=== PATIENT | female | born 1975 ===

== ENCOUNTER 2018-12-29 12:39 | Emergency (ER) | payer BC ==
[2018-12-29 12:54] VITALS: BMI 28.6
--- NOTE | 2018-12-29 13:09 | ED PDOC ---
Arrival/HPI - General Historian: Patient - History of Present Illness Narrative History of Present Illness (Text): 12/29/18 13:01 43 y/o female, no significant pmh, nkda, c/o headache and nausea/vomiting started this morning 5am. Pt. stated that she has chronic headache/nausea/v omiting on and off x 5 months. Pt. stated that this is chronic, never seen neurologist, seen by her own pmd, started again this morning with headache at 5am, nausea/vomiting, epigastric chest pain pain but resolved, no numbness or tingling, no change in vision, not the worst headache or her life, no blurry vision, no other medical or psychological complaints. Past Medical History - Provider Review Nursing Documentation Reviewed: Yes Family/Social History - Physician Review Nursing Documentation Reviewed: Yes Family/Social History: Unknown Family HX Allergies/Home Meds Allergies/Adverse Reactions: Allergies No Known Allergies Allergy (Verified 12/29/18 13:09) Review of Systems - Review of Systems Constitutional: absent: Fatigue, Fevers Eyes: absent: Vision Changes ENT: absent: Hearing Changes Respiratory: absent: SOB, Cough Cardiovascular: absent: Chest Pain Gastrointestinal: Nausea, Vomiting. absent: Abdominal Pain, Diarrhea Skin: absent: Rash, Pruritis Neurological: Headache. absent: Dizziness, Focal Weakness, Gait Changes, Speech Changes, Facial Droop, Disequilibrium, Seizure Psychiatric: absent: Anxiety, Depression, Suicidal Ideation Physical Exam Vital Signs Reviewed: Yes Vital Signs Temp Pulse Resp BP Pulse Ox 12/29/18 12:54 97.9 F 77 19 109/62 100 Temperature: Afebrile Blood Pressure: Normal Pulse: Regular Respiratory Rate: Normal Appearance: Positive for: Well-Appearing, Non-Toxic, Comfortable Pain Distress: Moderate Mental Status: Positive for: Alert and Oriented X 3 - Systems Exam Head: Present: Atraumatic, Normocephalic, Other (no temporal artery tenderness, no jaw claudication. ). No: Tenderness, Contusion, Swelling, Ecchymosis, Abrasion, Laceration Pupils: Present: PERRL Extroacular Muscles: Present: EOMI Conjunctiva: Present: Normal Ears: Present: Normal, NORMAL TM, Normal Canal. No: Erythema Mouth: Present: Moist Mucous Membranes Pharnyx: No: ERYTHEMA, EXUDATE, TONSILS ENLARGED Nose (External): Present: Atraumatic. No: Abrasion, Contusion, Laceration Nose (Internal): Present: Normal Inspection, No Active Bleeding. No: Edematous, Rhinorrhea, Septal Deviation, Septal Hematoma, Epistaxis Neck: Present: Normal Range of Motion, Trachea Midline. No: Meningeal Signs, MIDLINE TENDERNESS, Paraspinal Tenderness, Lymphadenopathy Respiratory/Chest: Present: Clear to Auscultation, Good Air Exchange. No: Respiratory Distress, Accessory Muscle Use, Wheezes, Decreased Breath Sounds, Rales, Retracting, Rhonchi, Tachypneic, Tender to Palpation Cardiovascular: Present: Regular Rate and Rhythm, Normal S1, S2. No: Murmurs Abdomen: No: Tenderness, Distention, Peritoneal Signs, Rebound, Guarding Back: Present: Normal Inspection. No: CVA Tenderness, Midline Tenderness, Paraspinal Tenderness, Pain with Leg Raise, Decubitus Ulcer Upper Extremity: Present: Normal Inspection. No: Cyanosis, Edema Lower Extremity: Present: Normal Inspection. No: Edema Neurological: Present: GCS=15, CN II-XII Intact, Speech Normal, Motor Func Grossly Intact, Normal Cerebellar Funct, Gait Normal, Memory Normal Skin: Present: Warm, Dry, Normal Color. No: Rashes Psychiatric: Present: Alert, Oriented x 3, Normal Insight, Normal Concentration Medical Decision Making ED Course and Treatment: 12/29/18 13:18 -labs -ekg -ct head -chest xray -IVF/reglan/benadryl/pepcid -Observe and reassess 12/29/18 14:45 -EKG: SR @ 72 BPM, no ST elevation or depression, no T wave inversion -CT head No acute intracranial abnormality. -Chest xray No active pulmonary disease. -Labs are non significant -Trop is negative -HEART score is low. -Headache and pain resolved, feeling much better, will discharge home. -Discharge home with fioriocet and zofran, stay hydrated, bed rest, follow up with your own pmd and neurologist/lead software development engineer within2 days, return to the ER for any new or worsening signs or symptoms. - RAD Interpretation Radiology Orders: CT head: Date of service: 12/29/2018 PROCEDURE: CT HEAD WITHOUT CONTRAST. HISTORY: headache, r/o bleed COMPARISON: None available. TECHNIQUE: Axial computed tomography images were obtained through the head/brain without i ntravenous contrast. Radiation dose: Total exam DLP = 907.75 mGy-cm. This CT exam was performed using one or more of the following dose reduction techniques: Automated exposure control, adjustment of the mA and/or kV according to patient size, and/or use of iterative reconstruction technique. FINDINGS: HEMORRHAGE: No intracranial hemorrhage. BRAIN: Cho-white matter differentiation is preserved. There is no mass, mass effect or abnormal extra-axial fluid collection. There is no territorial infarction. The midline sagittal structures are normal. VENTRICLES: The ventricles are normal in size, shape and configuration. CALVARIUM: There is no calvarial fracture or extracranial soft tissue swelling. PARANASAL SINUSES: There are retention cysts/polyps in the left maxillary sinus. The remaining included paranasal sinuses are clear. MASTOID AIR CELLS: Predominantly clear. OTHER FINDINGS: None. IMPRESSION: No acute intracranial abnormality. Chest xray: Date of service: 12/29/2018 HISTORY: medical clearance COMPARISON: No prior. FINDINGS: LUNGS: The lungs are well inflated and clear. PLEURA: No pleural effusions or pneumothorax. CARDIOVASCULAR: The heart is normal in size. No aortic atherosclerotic calcifications present. OSSEOUS STRUCTURES: Within normal limits for the patient's age. VISUALIZED UPPER ABDOMEN: Normal. OTHER FINDINGS: None. IMPRESSION: No active pulmonary disease. Program Director Scouting: Radiologist - PA / GOOD HUMOR VENDOR / Resident Statement MD/DO has reviewed & agrees with the documentation as recorded. Disposition/Present on Arrival - Present on Arrival Any Indicators Present on Arrival: No History of DVT/PE: No History of Uncontrolled Diabetes: No Urinary Catheter: No History of Decub. Ulcer: No - Disposition Have Diagnosis and Disposition been Completed?: Yes Diagnosis: Headache Disposition: HOME/ ROUTINE Disposition Time: 14:50 Patient Plan: Discharge Condition: GOOD Additional Instructions: -Discharge home with fioriocet and zofran, stay hydrated, bed rest, follow up with your own pmd and neurologist/lead software development engineer within2 days, return to the ER for any new or worsening signs or symptoms. Prescriptions: Acetaminophen/Butalbital/Caf [Fioricet] 1 tab PO QID PRN #25 tab PRN Reason: other Ondansetron [Zofran] 4 mg PO Q8H PRN #10 tab PRN Reason: Nausea/Vomiting Referrals: PCP,NO [Primary Care Provider] - Follow up with primary Erich Bowden MD [Staff Provider] - Follow up with primary [facility] [place] [Outside] - Follow up with primary Crystal Euceda MD [Staff Provider] - Follow up with primary Forms: WORK NOTE
[2018-12-29] MEDS ORDERED: Sodium Chloride 0.9% 1,000 ML IV STA (13:11)
[2018-12-29] MEDS ORDERED: DiphenhydrAMINE 50 mg/ml Inj IVP STA (13:11)
[2018-12-29 13:47] LABS: BASO # 0.02 K/mm3 (0.0-2.0); BASO % 0.2 % (0.0-3.0); EOS % 0.3 % (1.5-5.0); HEMOGLOBIN 12.5 g/dL (12.0-16.0); LYMPH # 1.4 (1.2-3.4); LYMPH % 13.1 % (22.0-35.0); MEAN CELL VOLUME 93.5 fl (80.0-105.0); MEAN CORPUSCULAR HGB CONC 33.2 g/dl (31.0-37.0); MONO # 0.4 (0.1-0.6); MONO % 3.6 % (1.0-6.0); RBC 4.03 10^6/uL (3.5-6.1); RED CELL DISTRIBUTION WIDTH 13.2 % (11.5-14.5); WHITE BLOOD COUNT 10.9 10^3/uL (4.5-11.0)
[2018-12-29 13:53] LABS: ALBUMIN 4.1 g/dL (3.0-4.8); ALT/SGPT 25 U/L (7-56); AST/SGOT 33 U/L (14-36); BLOOD UREA NITROGEN 14 mg/dL (7-21); CALCIUM 8.7 mg/dL (8.4-10.5); GFR NON-AFRICAN AMERICAN > 60; LIPASE 59 U/L (23-300)
[2018-12-29 14:04] LABS: TROPONIN I < 0.01 ng/mL
--- NOTE | 2018-12-29 14:06 | CT ---
Date of service: 12/29/2018 PROCEDURE: CT HEAD WITHOUT CONTRAST. HISTORY: headache, r/o bleed COMPARISON: None available. TECHNIQUE: Axial computed tomography images were obtained through the head/brain without intravenous contrast. Radiation dose: Total exam DLP = 907.75 mGy-cm. This CT exam was performed using one or more of the following dose reduction techniques: Automated exposure control, adjustment of the mA and/or kV according to patient size, and/or use of iterative reconstruction technique. FINDINGS: HEMORRHAGE: No intracranial hemorrhage. BRAIN: Cho-white matter differentiation is preserved. There is no mass, mass effect or abnormal extra-axial fluid collection. There is no territorial infarction. The midline sagittal structures are normal. VENTRICLES: The ventricles are normal in size, shape and configuration. CALVARIUM: There is no calvarial fracture or extracranial soft tissue swelling. PARANASAL SINUSES: There are retention cysts/polyps in the left maxillary sinus. The remaining included paranasal sinuses are clear. MASTOID AIR CELLS: Predominantly clear. OTHER FINDINGS: None. IMPRESSION: No acute intracranial abnormality.
--- NOTE | 2018-12-29 14:10 | RAD ---
Date of service: 12/29/2018 HISTORY: medical clearance COMPARISON: No prior. FINDINGS: LUNGS: The lungs are well inflated and clear. PLEURA: No pleural effusions or pneumothorax. CARDIOVASCULAR: The heart is normal in size. No aortic atherosclerotic calcifications present. OSSEOUS STRUCTURES: Within normal limits for the patient's age. VISUALIZED UPPER ABDOMEN: Normal. OTHER FINDINGS: None. IMPRESSION: No active pulmonary disease.
[2018-12-29 15:03] VITALS: BP 101/62; PULSE 88; RESP 18; TEMP 98.2; O2SAT 99
--- NOTE | 2018-12-29 22:19 | CARD ---
APPROVED REPORT Date of service: 12/29/2018 EKG Measurement Heart [id number] <Conclusion> Sinus rhythm with premature atrial complexes Otherwise normal ECG
== END 2018-12-29 15:02 | disposition home or self-care (01) ==
LOC: ED 12:39
DX: R51 Headache (principal)
CPT/HCPCS: 70450; 71045; 80053; 81025; 83690; 83735; 84484; 85025; 93005; 96374; 96375; 99283; J1200; J2765; J7030